=== PATIENT | male | born 1945 | race Caucasian/White ===

== ENCOUNTER 2019-02-28 13:15 | Inpatient (IN) | payer MEDICARE, OTHER ==
[~2019-02-28] VITALS: Ht 182.9 cm; Wt 86.3 kg
[2019-02-28] VITALS (10 sets, daily range): BP systolic 120–201; BP diastolic 61–101
[~2019-02-28 13:15] MED LIST: ASPI-612 PO; DIPH25CA58 PO; ESOM40CA PO; ESTR2TAB PO; FEXO60TA25 PO; FLUT1DIS3 IH; FLUT9.9S NS; METO-239 PO; NITR0.4T24 SL; OXYC1TAB15 PO; PANT20TA2 PO; TELM80TA PO
[2019-02-28] MEDS ORDERED: LACT20SO PO (15:16)
--- NOTE | 2019-02-28 15:24 | NUR ---
RN called Carolina MONTANO to notify her that patient had arrived from [facility]. Arrived at 1500. Patient able to answer all admission requirements/questions. He is A/O x4. Patient's medications and history verified. Order received from Carolina MONTANO to re-start all of patient's home medications. Order received to give 20mg Labetalol x1 IV and to start IV Cardene gtt if Labetalol did not lower BP. Goal is to keep SBP <160. Patient's belongings are in green bag on bedside table. See assessments, VS, admission.
[2019-02-28] MEDS ORDERED: LABETALOL 20 MG/4 ML DISP.SYRIN. IVP ONE (15:30)
[2019-02-28] MEDS ORDERED: oxyCODONE/APAP 5/325 1 TAB TABLET PO PRN (15:30)
[2019-02-28] MEDS ORDERED: NITROGLYCERIN SUBLINGUAL 0.4 MG BOTTLE OF 25. SL PRN (15:30)
[2019-02-28] MEDS ORDERED: PANTOPRAZOLE 40 MG TABLET.DR. PO ONE ×2 (17:18→17:30)
[2019-02-28 18:11] LABS: HEMATOCRIT 39.1 % (39.0-53.0); HEMOGLOBIN 13.2 g/dL (13.0-17.5); RED BLOOD COUNT 4.38 x10^6/uL (4.30-5.70); RED CELL DISTRIBUTION WIDTH 14.7 % (11.5-14.5); WHITE BLOOD COUNT 10.8 x10^3/uL (4.0-11.0)
[2019-02-28 18:19] LABS: PROTHROMBIN TIME PATIENT 11.8 SEC (11.7-14.0)
[2019-02-28 18:26] LABS: ALBUMIN 3.4 g/dL (3.4-5.0); ALBUMIN/GLOBULIN RATIO 0.9 (1.0-1.7); CALCIUM 8.7 mg/dL (8.5-10.1); CREATININE 0.9 mg/dL (0.7-1.3); GFR 82.9; MAGNESIUM 1.9 mg/dL (1.8-2.4); TOTAL BILIRUBIN 0.7 mg/dL (0.2-1.0); TOTAL PROTEIN 7.4 g/dL (6.4-8.2)
[2019-02-28] MEDS: BUDESONIDE 0.5 MG/2 ML NEBU. NEB SCH (20:53)
[2019-02-28] MEDS: ALBUTEROL SULFATE 2.5 MG/3 ML NEBU. NEB SCH (20:53)
[2019-02-28] MEDS ORDERED: NON FORMULARY ITEM (Fluticasone/Salmeterol (Advair 250-50 Diskus) 1 PUFF) IH SCH (21:00)
[2019-02-28] MEDS: diphenhydrAMINE HCL 25 MG CAPSULE PO SCH (21:08)
[2019-03-01] VITALS (21 sets, daily range): BP systolic 117–172; BP diastolic 55–88
[2019-03-01] MEDS: ALBUTEROL SULFATE 2.5 MG/3 ML NEBU. NEB SCH ×5 (06:00→19:53)
[2019-03-01] MEDS ORDERED: LIDOCAINE 1% PF 2 ML VIAL. ONE (07:01)
[2019-03-01] MEDS ORDERED: HEPARIN for ARTERIAL LINE 1,500 ML ONE (07:01)
[2019-03-01] MEDS ORDERED: IODIXANOL 320 MG/ML 100 ML VIAL. ONE (07:01)
[2019-03-01] MEDS ORDERED: fentaNYL PF VIAL 100 MCG/2 ML VIAL ONE (07:05)
[2019-03-01] MEDS ORDERED: HEPARIN for IV BOLUS 10,000 UNIT/10 ML VIAL. ONE ×2 (07:05→07:37)
[2019-03-01] MEDS ORDERED: MIDAZOLAM HCL/PF 2 MG/2 ML VIAL. ONE (07:05)
[2019-03-01] MEDS ORDERED: VERAPAMIL 5 MG/2 ML VIAL. ONE (07:05)
[2019-03-01] MEDS ORDERED: NITROGLYCERIN 200 MCG/2 ML SYRINGE FOR CATH/VASC LAB. ONE (07:05)
[2019-03-01] MEDS ORDERED: VERAPAMIL 5 MG/2 ML VIAL. IART ONE (07:15)
[2019-03-01] MEDS ORDERED: HEPARIN for IV BOLUS 10,000 UNIT/10 ML VIAL. IART ONE (07:15)
[2019-03-01] MEDS ORDERED: NITROGLYCERIN 200 MCG/2 ML SYRINGE FOR CATH/VASC LAB. IART ONE (07:15)
[2019-03-01] MEDS ORDERED: MIDAZOLAM HCL/PF 2 MG/2 ML VIAL. IV ONE (07:15)
[2019-03-01] MEDS ORDERED: LIDOCAINE 1% PF 2 ML VIAL. INJ ONE (07:15)
[2019-03-01] MEDS ORDERED: IODIXANOL 320 MG/ML 100 ML VIAL. IART ONE (07:15)
[2019-03-01] MEDS ORDERED: fentaNYL PF VIAL 100 MCG/2 ML VIAL IV ONE (07:15)
[2019-03-01] MEDS: BUDESONIDE 0.5 MG/2 ML NEBU. NEB SCH ×2 (08:00→19:53)
[2019-03-01] MEDS ORDERED: HEPARIN for IV BOLUS 10,000 UNIT/10 ML VIAL. IV ONE (08:00)
[2019-03-01] MEDS: PANTOPRAZOLE 40 MG TABLET.DR. PO SCH (08:43)
[2019-03-01] MEDS ORDERED: TELMISARTAN 80 MG PO SCH (09:00)
[2019-03-01] MEDS: FLUTICASONE 50MCG/NASAL SPRAY 16GM BOTTLE. NS SCH (09:18)
[2019-03-01] MEDS: METOPROLOL SUCC 24HR ER 25 MG TAB.ER.24H. PO SCH (09:18)
[2019-03-01] MEDS: LACTULOSE 20 GM/30 ML SOLUTION. PO SCH (09:18)
[2019-03-01] MEDS: LOSARTAN POTASSIUM 50 MG TABLET. PO SCH (09:18)
[2019-03-01] MEDS: CETIRIZINE HCL 10 MG TABLET. PO SCH (09:18)
[2019-03-01] MEDS: ASPIRIN ENTERIC COATED 81 MG TABLET.DR. PO SCH (09:18)
--- NOTE | 2019-03-01 10:52 | HP ---
ADMIT DATE: 03/01/2019 HISTORY OF PRESENT ILLNESS: The patient is a 73-year-old male patient who was seen initially at [facility] with chest pain. He also noted to have some dyspnea on exertion. His blood pressure has been extremely elevated over the last several weeks. He stated that his primary care physician started him on Benicar, however, he went to [facility], and they do not have it, they have not formulated it, really tried it yet. He is normally on metoprolol and Micardis and he tried without much improvement in his blood pressure. He tried sublingual nitroglycerin, alleviated his chest pain and he did drop his blood pressure and therefore he came to the Emergency Room as he is known to have aortic dissection, aortic intramural hematoma and infrarenal abdominal aortic aneurysm. He apparently did not require any surgical intervention so far. He apparently has been followed closely by the Cardiology team with the treatment in the form of tight blood pressure control. The patient denied any nausea or vomiting. Denied any diaphoresis. Did complain that the pain is radiating to his left arm. In the Emergency Room, his first set of cardiac enzyme was less than 0.017 and therefore, the patient was admitted to ICU and has 2 more sets of cardiac enzymes that showed troponin to be less than 0.017 and as recommended, as his blood pressure continued to be extremely high, the Cardiology team recommended transferring him to [facility] for cardiac catheterization. PAST MEDICAL HISTORY: Significant for hypertension, infrarenal abdominal aortic aneurysm, bronchial asthma, chronic obstructive pulmonary disease, diverticulosis, gastroesophageal reflux disease, irritable bowel syndrome, osteoarthritis, degenerative disk disease as well as rheumatoid arthritis. PAST SURGICAL HISTORY: Significant for right knee arthroscopic surgery and low back surgery, thyroid biopsy, PCI with stent deployment. FAMILY HISTORY: Positive for heart disease. SOCIAL HISTORY: He is , lives with his . He quit smoking in December 2018. He does not drink alcohol or use recreational drugs. ALLERGIES: HE IS ALLERGIC TO PENICILLIN, ORANGE JUICE AND PINEAPPLE. MEDICATIONS: He is currently on following medications: He is on diphenhydramine 25 mg 1 capsule at bedtime, fexofenadine 60 mg daily, nitroglycerin 0.4 mg sublingually every 5 minutes p.r.n., metoprolol succinate 25 mg daily, Micardis 80 mg daily, aspirin 81 mg once a day, oxycodone/APAP 5/325 one tablet every 6 hours, lactulose 30 mL p.o. daily. He is on Advair Diskus 250/50 one puff twice a day and he is on Flonase 2 sprays to each nostril once a day, Protonix 20 mg daily and Estradiol 2 mg p.o. daily. PHYSICAL EXAMINATION: GENERAL: On examining him on arrival to the [facility] ICU, he was started on Cardene drip and when I saw him this morning, he basically states that he has had episodes of chest pain, it was short-lived. Denied any shortness of breath, cough, phlegm or hemoptysis. When I examined him, he looked pale, no jaundice, cyanosis or thyromegaly. No jugular venous distention. No limb edema. VITAL SIGNS: His heart rate was 86, blood pressure 134/68, temperature was 98, respiratory rate was 16, and oxygen saturation was 95% on 2 liters of oxygen. HEAD, EYES, EARS, NOSE AND THROAT: Showed normocephalic, atraumatic. NECK: Supple. HEART: Showed normal first and second heart sounds. No gallop or murmur. CHEST: Clear to auscultation. No crepitation or rhonchi. ABDOMEN: Distended, soft, nontender. NEUROLOGIC: He is awake, alert, responding appropriately. All cranial nerves intact. EXTREMITIES: He moves extremities without difficulty. LABORATORY DATA: Showed a white cell count 10,800, hemoglobin 13, hematocrit 39, MCV 89 and platelet count 255,000. Serum sodium 141, potassium 4, chloride 103, bicarbonate 25, anion gap of 13, BUN 7, creatinine 0.9, estimated GFR was 84 mL per minute, glucose 143, calcium was 8.7, magnesium was 1.9. Total bilirubin, AST, ALT, alkaline phosphatase were normal. Total protein 7.4, albumin was 2.4. His prothrombin time and INR are within normal limits. ASSESSMENT AND PLAN: In summary, this is a 73-year-old male patient who was admitted with recurrent episodes of chest pain. He had so far 3 sets of cardiac enzymes, which were negative. He was transferred to [facility] for cardiac catheterization and to control his blood pressure. SARIKA PEREZ MD DR: STACEY/david JOB#: [id number] / [id number]
[2019-03-01] MEDS ORDERED: ESTRADIOL 1 MG TABLET. PO SCH (12:00)
[2019-03-01] MEDS ORDERED: amLODIPine BESYLATE 5 MG TABLET PO SCH (13:00)
--- NOTE | 2019-03-01 16:16 | NUR ---
SS following for discharge planning. SS reviewed pt chart. Pt is from home with spouse and is currently requiring oxygen. SS will continue to follow for discharge planning.
--- NOTE | 2019-03-01 18:10 | NUR ---
Patient arrived to room 246 from ICU around 1809. Patient has no complaints of pain. Vitals taken, tele placed on patient.
[2019-03-01] MEDS: diphenhydrAMINE HCL 25 MG CAPSULE PO SCH (21:08)
[2019-03-01] MEDS ORDERED: amLODIPine BESYLATE 5 MG TABLET PO ONE (22:00)
[2019-03-02 03:00] VITALS: BP 144/73
[2019-03-02 07:00] VITALS: BP 149/71
[2019-03-02] MEDS: BUDESONIDE 0.5 MG/2 ML NEBU. NEB SCH (08:16)
[2019-03-02] MEDS: ALBUTEROL SULFATE 2.5 MG/3 ML NEBU. NEB SCH ×2 (08:16)
[2019-03-02] MEDS: PANTOPRAZOLE 40 MG TABLET.DR. PO SCH (08:54)
[2019-03-02] MEDS: ASPIRIN ENTERIC COATED 81 MG TABLET.DR. PO SCH (08:55)
[2019-03-02] MEDS: CETIRIZINE HCL 10 MG TABLET. PO SCH (08:55)
[2019-03-02] MEDS: LACTULOSE 20 GM/30 ML SOLUTION. PO SCH (08:55)
[2019-03-02] MEDS: LOSARTAN POTASSIUM 50 MG TABLET. PO SCH (08:55)
[2019-03-02] MEDS: METOPROLOL SUCC 24HR ER 25 MG TAB.ER.24H. PO SCH (08:56)
[2019-03-02] MEDS: FLUTICASONE 50MCG/NASAL SPRAY 16GM BOTTLE. NS SCH (09:00)
[2019-03-02] MEDS ORDERED: amLODIPine BESYLATE 10 MG TABLET PO SCH (09:00)
[2019-03-02 11:00] VITALS: BP 149/76
[2019-03-02] MEDS ORDERED: AMLO10TA8 PO (12:37)
[2019-03-02] MEDS ORDERED: HYDR-2868 PO (12:42)
--- NOTE | 2019-03-02 13:07 | DS ---
DATE OF DISCHARGE: 03/02/2019 HOSPITAL COURSE: The patient is a 73-year-old male patient, who was originally seen in the Emergency Room of [facility] with chest pain and also dyspnea on exertion. His blood pressure has been extremely elevated over the last several weeks and therefore, the patient was transferred to [facility] where he underwent cardiac catheterization that apparently showed his coronary arteries to be within normal. His blood pressure was high, so amlodipine was added and then hydralazine and as his blood pressure stabilized and his cardiac catheterization showed his coronary arteries were normal, a decision was made to discharge him home to continue on his oral antihypertensive medication together with the amlodipine and hydralazine. PHYSICAL EXAMINATION: GENERAL: When I saw him this morning, he was resting slightly propped up in bed, in no apparent respiratory distress. No pallor, jaundice, cyanosis or thyromegaly. No jugular venous distention. No limb edema. VITAL SIGNS: Heart rate was 87, blood pressure was 149/76, his temperature was 97.6, respiratory rate was 20, and oxygen saturation was 94%. HEAD, EYES, EARS, NOSE AND THROAT: Normocephalic, atraumatic. NECK: Supple. HEART: Showed normal first and second heart sounds. No gallop, rub or murmur. CHEST: Clear to auscultation. No crepitation or rhonchi. ABDOMEN: Distended, soft, nontender. NEUROLOGIC: He was awake, alert, responding appropriately. All cranial nerves are intact. He moves extremities without difficulty, ambulates without assistance or assistive devices. His intake was 700, output was 2150. LABORATORY DATA: Showed a white cell count of 10,800, hemoglobin 13, hematocrit 39, MCV 89 and platelet count 255,000. His chemistry showed serum sodium of 141, potassium 4, chloride 103, bicarbonate 25, anion gap of 13, BUN 7, creatinine 0.9, estimated GFR was 83 mL per minute, his glucose 143, calcium was 8.7, magnesium was 1.9. Total bilirubin, AST, ALT, alkaline phosphatase were normal. His total protein was 7.4, albumin was 3.4. His prothrombin time was 11.8. INR was 0.9. DISCHARGE MEDICATIONS: The patient was discharged home to continue on amlodipine 10 mg once a day, hydralazine 25 mg twice a day, aspirin 81 mg once a day, Benadryl 25 mg at bedtime, estradiol 12 mg daily, Estefania 60 mg once a day, Flonase 2 sprays to each nostril once a day, Advair Diskus 250/50 one inhalation twice a day, lactulose 30 mL p.o. daily, metoprolol succinate 25 mg once a day, nitroglycerin 0.4 mg sublingually every 5 minutes x 3, oxycodone/APAP 5/325 one tablet every 6 hours. He is on Protonix 20 mg daily and Micardis 80 mg daily. FINAL DISCHARGE DIAGNOSES: 1. Chest pain, myocardial infarction ruled out, 2. Accelerated hypertension, much better controlled. 3. Other medical problems include infrarenal abdominal aortic aneurysm, bronchial asthma, chronic obstructive pulmonary disease, gastroesophageal reflux disease, irritable bowel syndrome, osteoarthritis, degenerative disk disease, and rheumatoid arthritis. SARIKA PEREZ MD DR: STACEY/david JOB#: [id number] / [id number]
--- NOTE | 2019-03-02 14:02 | NUR ---
Pt discharged to home. Discharge instructions, scripts, and precautions reviewed with pt. Drsg to RUE wrist removed, no bleeding, redness or warmth noted. x2 IVs d/c'd without complications. Pt assisted car with staff and . Denies further needs.
--- NOTE | 2019-03-02 23:33 | PDOC ---
CARDIOLOGY PROGRESS NOTE SUBJECTIVE: No acute events. Denies any chest pain OBJECTIVE: Vital Signs/I&O: Vital Signs Date Time Temp Pulse Resp B/P (MAP) Pulse Ox O2 Delivery O2 Flow Rate FiO2 03/02/19 11:00 97.6 87 20 149/76 (100) 94 Room Air 97.6 03/01/19 22:50 I & O 03/01/19 03/01/19 03/02/19 14:59 22:59 06:59 Output Total 650 ml Balance -650 ml Objective: GEN.: No apparent distress. Alert and oriented. HEENT: Head is normocephalic, atraumatic NECK: Supple. LUNGS: Clear to auscultation. HEART: RRR, S1, S2 present. Peripheral pulses intact ABDOMEN: Soft, nontender. Positive bowel sounds. EXTREMITIES: Without any cyanosis. NEUROLOGIC: Normal speech, normal tone PSYCHIATRIC: Normal affect, normal mood. SKIN: No ulcerations CURRENT MEDICATIONS: Current Medications Medications (Trade) Dose Ordered Sig/Sajan Route PRN Reason Start Time Stop Time Status Last Admin Dose Admin Amlodipine Besylate (Norvasc) 10 mg DAILY PO 03/02/19 09:00 03/02/19 14:06 DC 03/02/19 08:55 ASSESSMENT: 1. HTN - labile 2. Prior TA dissection, stable 3. CAD PLAN: 1. Will add amlodipine to his metoprolol and telmisartan. 2. Use hydralazine prn. Discussed with him and his . Supportive care. Ok to DC today. Thanks. We will f/u with him in the office. CHANDAN HEATON MD Mar 02, 2019 23:33
--- NOTE | 2019-03-04 11:24 | CARD ---
MR#: [id number] Date of Study: 03/01/2019 Ordering Physician: MARY LOU BENEDICT, Referring Physician: MARY LOU BENEDICT, Tech: RT Kieran (R) APPROVED REPORT Technologist: Miryam Garrett RT (R) Nurse: Eduarda Cottrell RN Procedure(s) performed: fl time: 4.4 mins dose: 47gy/cm2 contrast: 78 ml moderate sedation: 35 mins LHC, Coronary angiography, iFR of the LAD and LCx. HISTORY The patient is a 73 year-old male with a history of : coronary artery disease, hypertension, dyslipid emia. INDICATION The indication(s) include : unstable angina . CSHA Clinical Frailty Scale CSHA Clinical Frailty Scale: Managing Well Heart Failure Heart Failure: No PROCEDURE NARRATIVE INFORMED CONSENT: After explaining the risks and benefits of the procedure and alternatives, informed consent was obtained. The patient was brought electively to the cardiac catheterization lab. A timeout was performed confi rming the patient's name, date of , procedure, and site of procedure. All necessary personnel w ere wearing the appropriate protective equipment and radiation monitor devices. (See nursing notes for medications administered). ACCESS: The right wrist was sterilely prepped and draped in the usual fashion. The right wrist was infiltrat ed with 1 mL of 2% lidocaine for subcutaneous anesthesia. A 6 Vietnamese Terumo glide sheath was inserte d into the right radial artery without difficulty. CORONARY ANGIOGRAPHY: Right and left coronary angiography was performed using a 6Fr TIG 4.0 catheter. Left ventricular en d diastolic pressure was obtained with a pigtail catheter and pullback was performed after left ventr iculography. All catheter exchanges and advancements were performed over a guidewire. FINDINGS: HEMODYNAMICS: LVEDP 5 mm Hg No gradient on LV to aortic pullback. AO: 128/78 LEFT VENTRICULOGRAM:Deferred due to known normal EF. CORONARY ANGIOGRAPHY: LM is a large caliber vessel with a distal 20% stenosis. LAD is a large caliber vessel with a patent proximal stent. The mid and distal vessel has a mild diff use disease of up to 30%. D1 is a moderate caliber vessel with mild diffuse irregularities of up to 30%. LCx is a moderate caliber non-dominant vessel with a mid 50% stenosis. OM1 is a moderate caliber vessel with proximal 50% stenosis. RCA is a large caliber dominant vessel with a proximal to mid 40% stenosis. RPDA and RPL are moderate caliber vessels with mild diffuse disease of up to 40%. INTERVENTIONAL TECHNIQUE: iFR of the LAD and Lcx. Due to patient's intermittent chest pain concerning for unstable angina and moderate disease a physio logic study was performed. Heparin was used for anticoagulation. Through a 6Fr EBU 3.5 guide catheter , a 0.014'' iFR wire was advanced to the distal OM1 after normalization and NTG administration. iFR w as measured at 0.93. The wire was then directed to the LAD, the iFR was measured at 0.92. Final angio graphy demonstrated no evidence of wire or guide related complications. CLOSURE: At case completion the right radial sheath was removed and a Terumo radial band was applied with 13 m l of air. COMPLICATIONS: The patient tolerated the procedure well and there were no immediate complications. Conclusion 1. Normal left sided filling pressures. 2. Three vessel coronary disease 3. Negative iFR of the LAD and LCx. Recommendations Aggressive Medical Therapy Signed by : Sanchez Jones, Electronically Approved : 03/01/2019 08:42:43
== END 2019-03-02 14:05 | disposition home or self-care (01) | DRG 287 ==
LOC: 1 WEST ICU 15:07 → 2 SOUTH 03-01 18:12
PROVIDERS: ADMIT Internal Medicine; ATTEND Internal Medicine
PROC: 4A023N7 Measurement of Cardiac Sampling and Pressure, Left Heart, Percutaneous Approach (ICD-10-PCS; principal; 2019-03-01)
PROC: B2111ZZ Fluoroscopy of Multiple Coronary Arteries using Low Osmolar Contrast (ICD-10-PCS; 2019-03-01)
PROC: 4A033BC Measurement of Arterial Pressure, Coronary, Percutaneous Approach (ICD-10-PCS; 2019-03-01)
DX: I25.10 Atherosclerotic heart disease of native coronary artery without angina pectoris (principal); I10 Essential (primary) hypertension; K57.90 Diverticulosis of intestine, part unspecified, without perforation or abscess without bleeding; J44.9 Chronic obstructive pulmonary disease, unspecified; K21.9 Gastro-esophageal reflux disease without esophagitis; M19.90 Unspecified osteoarthritis, unspecified site; Z87.891 Personal history of nicotine dependence; Z95.5 Presence of coronary angioplasty implant and graft
CPT/HCPCS: 36415; 80053; 83735; 84484; 85027; 85610; 93458; 93571; 94640; 94760; 99152; 99153; C1769; C1887; C1892; J1644; J2250; J3010; J3490; J7050; J7613; J7626; Q0163; Q9967; G0378; J7030

== ENCOUNTER → 2020-01-03 | Outpatient (CLI) | payer MEDICARE, OTHER ==
[~2020-01-03] MED LIST changes: +AMLO10TA8 PO; -ASPI-612 PO; +ASPI-630 PO; +ASPI-886 PO; +FLUT1DIS IH; +FURO20TA3 PO; +HYDR-2868 PO; +IPRA4AER IH; +LACT20SO PO; +OMEP20CA16 PO
== END | disposition home or self-care (01) ==
LOC: LAB 14:09
PROVIDERS: ATTEND Internal Medicine Cardiovascular Disease
DX: Z01.818 Encounter for other preprocedural examination (principal); Z11.59 Encounter for screening for other viral diseases; I50.33 Acute on chronic diastolic (congestive) heart failure
CPT/HCPCS: U0003-CS

== ENCOUNTER 2020-01-07 06:58 | Outpatient (CLI) | payer MEDICARE, OTHER ==
[~2020-01-07] VITALS: Ht 182.9 cm; Wt 95.3 kg
[2020-01-07] VITALS (12 sets, daily range): BP systolic 128–171; BP diastolic 55–77
[~2020-01-07 06:58] MED LIST changes: -ASPI-630 PO; -FLUT1DIS IH; -FURO20TA3 PO; -IPRA4AER IH; -OMEP20CA16 PO
[2020-01-07] MEDS ORDERED: ESTR2TAB PO (07:21)
[2020-01-07] MEDS ORDERED: FLUT1DIS IH (07:21)
[2020-01-07] MEDS ORDERED: FURO20TA3 PO (07:21)
[2020-01-07] MEDS ORDERED: ASPI-630 PO (07:21)
[2020-01-07] MEDS ORDERED: IPRA4AER IH (07:21)
[2020-01-07] MEDS ORDERED: OMEP20CA16 PO (07:21)
[2020-01-07 07:41] LABS: HEMATOCRIT 40.7 % (39.0-53.0); HEMOGLOBIN 13.3 g/dL (13.0-17.5); RED BLOOD COUNT 4.52 x10^6/uL (4.30-5.70); RED CELL DISTRIBUTION WIDTH 14.3 % (11.5-14.5); WHITE BLOOD COUNT 8.8 x10^3/uL (4.0-11.0)
[2020-01-07] MEDS ORDERED: LIDOCAINE 1% Multi-Dose 20 ML VIAL. ONE (07:41)
[2020-01-07 07:53] LABS: PROTHROMBIN TIME PATIENT 11.9 SEC (11.7-14.0)
[2020-01-07 07:54] LABS: CALCIUM 9.1 mg/dL (8.5-10.1); CREATININE 1.2 mg/dL (0.7-1.3); GFR 59.3; POTASSIUM 4.2 mmol/L (3.5-5.1)
[2020-01-07] MEDS ORDERED: MIDAZOLAM HCL/PF 2 MG/2 ML VIAL. ONE (07:56)
[2020-01-07] MEDS ORDERED: fentaNYL PF VIAL 100 MCG/2 ML VIAL ONE (07:56)
[2020-01-07] MEDS ORDERED: VERAPAMIL 5 MG/2 ML VIAL. ONE (08:12)
[2020-01-07] MEDS ORDERED: HEPARIN for IV BOLUS 10,000 UNIT/10 ML VIAL. ONE (08:12)
[2020-01-07] MEDS ORDERED: NITROGLYCERIN 200 MCG/2 ML SYRINGE FOR CATH/VASC LAB. ONE (08:12)
[2020-01-07] MEDS ORDERED: fentaNYL PF VIAL 100 MCG/2 ML VIAL IV ONE (08:15)
[2020-01-07] MEDS ORDERED: IODIXANOL 320 MG/ML 100 ML VIAL. IART ONE (08:15)
[2020-01-07] MEDS ORDERED: LIDOCAINE 1% Multi-Dose 20 ML VIAL. INJ ONE (08:15)
[2020-01-07] MEDS ORDERED: MIDAZOLAM HCL/PF 2 MG/2 ML VIAL. IV ONE (08:15)
[2020-01-07] MEDS ORDERED: CONTRAST GIVEN. MC PRN (08:15)
[2020-01-07] MEDS ORDERED: NITROGLYCERIN 200 MCG/2 ML SYRINGE FOR CATH/VASC LAB. IART ONE (08:30)
[2020-01-07] MEDS ORDERED: HEPARIN for IV BOLUS 10,000 UNIT/10 ML VIAL. IART ONE (08:30)
[2020-01-07] MEDS ORDERED: VERAPAMIL 5 MG/2 ML VIAL. IART ONE (08:30)
[2020-01-07] MEDS ORDERED: IV NORMAL SALINE 500ML BAG 500 ML IV ONE (09:00)
--- NOTE | 2020-01-07 09:47 | CARD ---
MR#: [id number] Date of Study: 01/07/2020 Ordering Physician: CHANDAN HEATON, Referring Physician: CHANDAN HEATON, Tech: KYLER SMALL RTR APPROVED REPORT Technologist: KYLER SMALL RTR Nurse: Eduarda Cottrell RN Procedure(s) performed: MODERATE SEDATION TIME: 40 minutes FLUORO TIME: 2.0 MIN DOSE: 46.6 GYCM2 CONTRAST: 33 CC VISI Coronary angiography, RHC HISTORY The patient is a 74 year-old male with a history of : coronary artery disease, tobacco history() , hy pertension, dyslipidemia. INDICATION The indication(s) include : dyspnea. [facility] Clinical Frailty Scale [facility] Clinical Frailty Scale: Mildly Frail Heart Failure Heart Failure: Yes If Yes, Newly Diagnosed: No If Yes, HF Type: Diastolic If Yes, NYHA Class: Class II PROCEDURE NARRATIVE Clinical information: 74-year-old male with known prior coronary disease, COPD and persistent lifestyle limiting dyspnea de spite adequate control blood pressure and heart rate presents to the Rn Licensed Practical for further delineation of his symptomatology. Procedure details: Access: Right internal jugular vein access was obtained under ultrasound guidance via the modified Se ldinger technique using an 18-gauge needle and a J-tip guidewire and a 5 Israeli sheath was placed. R ight radial arterial access was obtained via the Seldinger technique when a 6 Israeli Terumo radial sh eath was placed without difficulty. Right heart catheterization: A 5 Israeli PA catheter was advanced to the right heart chambers and pressures and saturations were ob tained. Coronary angiography: Coronary angiography was performed with a 6 Israeli TIG catheter and multiple views were obtained. Findings: Aorta: 115/86 LVEDP not obtained Right atrial pressure: 5 mmHg RV pressure: 28/5 PA pressure: 30/10 Pulmonary capillary wedge pressure: 10 Cardiac output by Osmany 4.6 L/min Pulmonary saturation 71% Coronary angiography: Left main is a moderate caliber vessel with mild luminal irregularities LAD is a moderate caliber vessel with a proximal patent stent and mild diffuse irregularities diffuse ly D1 is a moderate caliber vessel with mild luminal irregularities Left circumflex is a moderate to large caliber vessel with a proximal 40% stenosis. OM1 is a moderate caliber vessel with a proximal 50% stenosis RCA is a large caliber dominant vessel with mild luminal irregularities RPDA is a moderate caliber vessel with mild luminal irregularities RPL is a moderate caliber vessel with an ostial 50% stenosis Conclusion 1. Normal biventricular filling pressures 2. No evidence of pulmonary hypertension 3. Normal cardiac output 4. Moderate noncritical coronary disease Recommendations 1. Case discussed with the pulmonary team as well. No obvious cardiac pathology noted to help expla in the patient's dyspnea. Continue risk factor modification Signed by : Chandan Heaton, Electronically Approved : 01/07/2020 09:47:16
--- NOTE | 2020-01-07 12:36 | NUR ---
Discharge Note: CRIS FENTON Discharge instructions and discharge home medications reviewed with Patient and a copy given. All questions have been answered and understanding verbalized. Patient ate breakfast with no difficulties. The following instructions and handouts were given: Moderate sedation and radial site care. Discontinued lines and drains: Left hand PIV, dressing clean dry intact. Patient discharged to home with son via wheelchair to private vehicle. Dr. Jones talked with patient at bedside about SOA after talking with Dr. Mcconnell. Patient given new prescription for Ranexa 500mg 1 PO BID #60 with 2 refills.
== END 2020-01-07 12:30 | disposition home or self-care (01) ==
LOC: CCL 06:58
PROVIDERS: ATTEND Internal Medicine Cardiovascular Disease
DX: R06.09 Other forms of dyspnea (principal); I25.10 Atherosclerotic heart disease of native coronary artery without angina pectoris; I11.0 Hypertensive heart disease with heart failure; I50.33 Acute on chronic diastolic (congestive) heart failure; E78.5 Hyperlipidemia, unspecified; J44.9 Chronic obstructive pulmonary disease, unspecified; Z88.0 Allergy status to penicillin; Z88.8 Allergy status to other drugs, medicaments and biological substances; Z87.891 Personal history of nicotine dependence; Z98.890 Other specified postprocedural states; Z79.899 Other long term (current) drug therapy
CPT/HCPCS: 36415; 80048; 85027; 85610; 93456; 99152; 99153; C1769; C1892; J1644; J2250; J3010; J3490; J7040; Q9967

== ENCOUNTER → 2020-11-13 | Outpatient (CLI) | payer MEDICARE, OTHER ==
[2020-01-07 11:35] VITALS: BP 132/55
[~2020-11-13] MED LIST changes: +AMLO-187 PO; -AMLO10TA8 PO; +ASPI-630 PO; +FLUT1DIS IH; +FURO20TA3 PO; +IPRA4AER IH; +OMEP20CA16 PO
== END ==
LOC: LAB 14:06
PROVIDERS: ATTEND Internal Medicine Pulmonary Disease
DX: R06.02 Shortness of breath (principal)
CPT/HCPCS: 36415; 83880

== ENCOUNTER → 2020-12-02 | Outpatient (CLI) | payer MEDICARE, OTHER ==
[2020-01-07 11:35] VITALS: BP 132/55
--- NOTE | 2020-12-04 16:53 | RESP ---
DATE OF SERVICE: 12/02/2020 ATTENDING PHYSICIAN: James Mcconnell MD The patient underwent full pulmonary function testing pre and post-bronchodilator on 12/02. The FEV1/FVC ratio is 58%, FEV1 was 2.06 liters at 66% of predicted. FVC was 3.53 liters, 83% of predicted. There was no significant bronchodilator response. Residual volume was markedly elevated. Total lung capacity was elevated. Diffusion capacity was decreased at 53% of predicted. IMPRESSION: 1. Moderate to severe airflow limitation. 2. No significant bronchodilator response. 3. Decreased diffusion capacity compatible with emphysema. ARABELLA DR: Flavio TID: [id number] CC: NATALIE WEINSTEIN MD
== END ==
LOC: PF 08:51
PROVIDERS: ATTEND Internal Medicine Pulmonary Disease
DX: J44.9 Chronic obstructive pulmonary disease, unspecified (principal); J45.909 Unspecified asthma, uncomplicated
CPT/HCPCS: 94060; 94640; 94726; 94729; 94664